=== PATIENT | female | born 1980 | race Caucasian/White ===

== ENCOUNTER → 2016-12-02 | Outpatient (CLI) | payer BC ==
[2016-12-02 10:09] LABS: HEMATOCRIT 38.8 % (36.0-47.0); HEMOGLOBIN 12.9 g/dL (12.0-15.5); HGB HCT DIFFERENCE -0.1; MEAN CORPUSCULAR HEMOGLOBIN 30.7 pg (27.0-33.4); MEAN CORPUSCULAR HGB CONC 33.1 g/dL (32.0-36.0); MEAN CORPUSCULAR VOLUME 93 fl (80-97); RED BLOOD COUNT 4.19 10^6/uL (3.72-5.28); RED CELL DISTRIBUTION WIDTH 12.4 % (11.5-14.0); WHITE BLOOD COUNT 7.7 10^3/uL (4.0-10.5)
[2016-12-02 10:31] LABS: ALANINE AMINOTRANSFERASE 20 U/L (9-52); ALBUMIN 3.5 g/dL (3.5-5.0); ALKALINE PHOSPHATASE 110 U/L (38-126); ANION GAP 10 (5-19); ASPARTATE AMINO TRANSFERASE 17 U/L (14-36); BLOOD UREA NITROGEN 9 mg/dL (7-20); CALCIUM 9.2 mg/dL (8.4-10.2); CARBON DIOXIDE 29 mmol/L (22-30); CHLORIDE 101 mmol/L (98-107); CREATININE RESULT 0.71 mg/dL (0.52-1.25); GLUCOSE 81 mg/dL (75-110); IRON 72 ug/dL (37-170); POTASSIUM 4.2 mmol/L (3.6-5.0); SODIUM 139.9 mmol/L (137-145); TOTAL PROTEIN 6.7 g/dL (6.3-8.2)
[2016-12-02 11:35] LABS: FOLATE > 20.00 ng/mL (>2.76)
[2016-12-03 07:10] LABS: VITAMIN D 25-HYDROXY 30.6 ng/mL (30.0-100.0)
== END ==
LOC: OD 08:48
PROVIDERS: ATTEND Surgery
DX: E46 Unspecified protein-calorie malnutrition (principal); K90.9 Intestinal malabsorption, unspecified; Z98.84 Bariatric surgery status
CPT/HCPCS: 36415; 80048; 80076; 82306; 82607; 82728; 82746; 83540; 83970; 84207; 84425; 85027

== ENCOUNTER → 2017-05-23 | Outpatient (CLI) | payer BC ==
[2017-05-23 08:21] LABS: HEMATOCRIT 39.8 % (36.0-47.0); HEMOGLOBIN 13.1 g/dL (12.0-15.5); HGB HCT DIFFERENCE -0.5; MEAN CORPUSCULAR HEMOGLOBIN 30.1 pg (27.0-33.4); MEAN CORPUSCULAR HGB CONC 32.8 g/dL (32.0-36.0); MEAN CORPUSCULAR VOLUME 92 fl (80-97); RED BLOOD COUNT 4.34 10^6/uL (3.72-5.28); RED CELL DISTRIBUTION WIDTH 12.8 % (11.5-14.0)
[2017-05-23 08:59] LABS: ALANINE AMINOTRANSFERASE 19 U/L (9-52); ALBUMIN 3.8 g/dL (3.5-5.0); ALKALINE PHOSPHATASE 110 U/L (38-126); ANION GAP 8 (5-19); ASPARTATE AMINO TRANSFERASE 16 U/L (14-36); BILIRUBIN,DIRECT 0.3 mg/dL (0.0-0.4); BILIRUBIN,TOTAL 0.9 mg/dL (0.2-1.3); BLOOD UREA NITROGEN 8 mg/dL (7-20); CALCIUM 8.9 mg/dL (8.4-10.2); CARBON DIOXIDE 28 mmol/L (22-30); CHLORIDE 103 mmol/L (98-107); CREATININE RESULT 0.64 mg/dL (0.52-1.25); GLUCOSE 86 mg/dL (75-110); IRON 97.3 ug/dL (37-170); POTASSIUM 4.6 mmol/L (3.6-5.0); SODIUM 139.3 mmol/L (137-145); TOTAL PROTEIN 6.8 g/dL (6.3-8.2)
[2017-05-24 07:36] LABS: VITAMIN D 25-HYDROXY 33.4 ng/mL (30.0-100.0)
== END ==
LOC: OD 07:41
PROVIDERS: ATTEND Surgery
DX: E46 Unspecified protein-calorie malnutrition (principal); Z98.84 Bariatric surgery status
CPT/HCPCS: 36415; 80048; 80076; 82306; 82607; 82728; 82746; 83540; 83970; 84207; 84425; 85027

== ENCOUNTER 2019-09-08 09:19 | Day surgery (SDC) | payer BC ==
[2019-09-03 10:49] LABS: HEMATOCRIT 36.6 % (36.0-47.0); HEMOGLOBIN 12.1 g/dL (12.0-15.5); MEAN CORPUSCULAR HEMOGLOBIN 28.8 pg (27.0-33.4); MEAN CORPUSCULAR HGB CONC 33.2 g/dL (32.0-36.0); MEAN CORPUSCULAR VOLUME 87 fl (80-97); PLATELET COUNT 249 10^3/uL (150-450); RED BLOOD COUNT 4.22 10^6/uL (3.72-5.28); WHITE BLOOD COUNT 6.8 10^3/uL (4.0-10.5)
[2019-09-03 10:55] LABS: APPEARANCE,URINE SLIGHTLY-CLOUDY; BILIRUBIN,URINE NEGATIVE (NEGATIVE); COLOR,URINE YELLOW; GLUCOSE, URINE NEGATIVE (NEGATIVE); KETONES,URINE NEGATIVE (NEGATIVE); LEUKOCYTE ESTERASE,URINE MODERATE (NEGATIVE); NITRITE,URINE NEGATIVE (NEGATIVE); PROTEIN,URINE NEGATIVE (NEGATIVE); URINE SPECIFIC GRAVITY 1.024
[~2019-09-08 09:19] MED LIST: LACTATED RINGERS 1000 ML IV PRN; LIDOCAINE 0.5% INJ-PF (5 MG/ML) 50 ML SDV SUBCUT PRN; SCOPOLAMINE HYDROBROMIDE 1.5 MG PATCH.TD72 TD PRN
[2019-09-08] MEDS ORDERED: SCOPOLAMINE HYDROBROMIDE 1.5 MG PATCH.TD72 ONE (09:23)
[2019-09-08] MEDS ORDERED: FENTANYL CITRATE INJ/PF 100 MCG/2 ML AMPUL ONE ×2 (11:54→12:48)
[2019-09-08] MEDS ORDERED: PROPOFOL INJ 200 MG/20 ML VIAL IV ONE ×2 (11:54→12:49)
[2019-09-08] MEDS ORDERED: MIDAZOLAM 2 MG/2 ML INJ ONE ×2 (11:54→12:48)
[2019-09-08] MEDS ORDERED: ONDANSETRON HCL INJ/PF 4 MG/2 ML SDV ONE (12:48)
[2019-09-08] MEDS ORDERED: LIDOCAINE 1%/EPINEPHRINE INJ 20 ML VIAL ONE (13:02)
[2019-09-08] MEDS ORDERED: DIPHENHYDRAMINE HCL 50 MG/ML VIAL IV PRN (13:44)
[2019-09-08] MEDS ORDERED: FENTANYL CITRATE INJ/PF 100 MCG/2 ML AMPUL IV PRN ×3 (13:44)
[2019-09-08] MEDS ORDERED: MEPERIDINE HCL/PF INJ 25 MG/1 ML DISP.SYRIN IV PRN (13:44)
[2019-09-08] MEDS ORDERED: MORPHINE SULFATE 10 MG/ML INJ IV PRN (13:44)
[2019-09-08] MEDS ORDERED: PROMETHAZINE HCL INJ 25 MG/1 ML VIAL IV PRN (13:44)
--- NOTE | 2019-09-08 14:43 | Brief Operative Note ---
BRIEF OPERATIVE REPORT DATE OF SURGERY: 09/08/19 TIME OF SURGERY: 13:40 PREOPERATIVE DIAGNOSIS: Abnormal uterine bleeding. Abnormal Ultrasound finding in endometrium POSTOPERATIVE DIAGNOSIS: Same as above and Endometrial polyp SURGEON: DOMINGO MALAVE PRODUCTION SCHEDULER: ELVIS BROWN FINDINGS: Endometrial polyp left endometrial cavity. Fluffy endometrium throughout COMPLICATIONS: None ESTIMATED BLOOD LOSS: 10 ml TISSUE REMOVED OR ALTERED: Endometrial polyp and endometrial tissue TECHNICAL PROCEDURE: See operative report for details
[2019-09-08 16:35] VITALS: BP 128/50
--- NOTE | 2019-09-08 16:53 | Operative Report ---
Operative Report DATE OF SURGERY: 09/08/19 Operative Report: Dilation of cervix, hysteroscopy and Myosure with removal of endometrial polyp PREOPERATIVE DIAGNOSIS: Abnormal uterine bleeding. Abnormal US of uterus POSTOPERATIVE DIAGNOSIS: Same as above with addition of endometrial polyp OPERATION: Dilation of cervix, hysteroscopy and Myosure removal of endometrial polyp SURGEON: DOMINGO LINK 1ST NURSE ORTHOPAEDIC: ELVIS BROWN ANESTHESIA: Moderate Sedation TISSUE REMOVED OR ALTERED: Endometrial polyp and endometrial tissue COMPLICATIONS: None ESTIMATED BLOOD LOSS: 10 cc INTRAOPERATIVE FINDINGS: Endometrial polyp left endometrial cavity. Fluffy endometrium throughout PROCEDURE: The patient was taken to the operating room where monitored anesthesia was administered and found to be adequate. She was then placed in the dorsal lithotomy position and preppped and draped in the usual fashion. A time out was taken. A weighted speculum was placed in the posterior vaginal vault and a fine retractor was used anteriorly to bring the cervix into good view . THe anterior lip of the cervix was grasped with a single tooth tenaculum and the cervix was serial dilated to allow passage of a #5 hysteroscope. The uterus was sounded to 8 cm. The hysteroscope was then inserted and using a saline distension medium the cavity was inspected . A Polyp was noted in the left endometrial cavity. It filled the cavity on the left. The remaining endometrium was fluffy throughout. The ostia were identified. The Myosure was then advanced and the polyp removed. The remained cavity was cleared of any debris. Good results were noted. Pictures were obtained pre and post procedure. All instruments were removed from patients vagina. A small amount of oozing was noted on the right anterior lip of the cervix. Pressure was held and silver nitrate applied. Hemostasis was obtained. All instrument, sponge and needle counts were correct x2. The patient tolerated the procedure well. She was allowed to awake from anesthesia and transfered to recover room in stable condition.
== END 2019-09-08 15:55 | disposition home or self-care (01) ==
LOC: OROUT 09:19
PROVIDERS: ATTEND Obstetrics & Gynecology
DX: N84.0 Polyp of corpus uteri (principal); N71.0 Acute inflammatory disease of uterus; N93.9 Abnormal uterine and vaginal bleeding, unspecified
CPT/HCPCS: 36415; 85027; 81025; 81001; 88305 ×2; 58558; J2250; J3010; J2405; J2704; 952; J3490